=== PATIENT | male | born 1950 | race Asian ===

== ENCOUNTER 2017-01-13 10:41 | Emergency (ER) | payer OTHER ==
[~2017-01-13] VITALS: Ht 188 cm; Wt 86.2 kg
[2017-01-13 10:47] VITALS: BP_SYST 132
[2017-01-13] MEDS ORDERED: MORPHINE 4 MG/ML INJ. SYRINGE IM ONE (12:30)
[2017-01-13 14:32] VITALS: BP_SYST 130
== END 2017-01-13 14:32 | disposition home or self-care (01) ==
LOC: SED 10:41 → EDBD 10:41 → SED 14:32
DX: S52.021A Displaced fracture of olecranon process without intraarticular extension of right ulna, initial encounter for closed fracture (principal); Z86.73 Personal history of transient ischemic attack (TIA), and cerebral infarction without residual deficits; Z95.0 Presence of cardiac pacemaker; W06.XXXA Fall from bed, initial encounter; Y93.89 Activity, other specified; Y92.89 Other specified places as the place of occurrence of the external cause; Y99.8 Other external cause status
CPT/HCPCS: 29105; 73080; 73564; 96372; 99284; J2270